=== PATIENT | male | born 1985 | race Hispanic/Latino ===

== ENCOUNTER 2018-04-25 17:22 | Inpatient (IN) | payer BC ==
[2018-04-25] MEDS ORDERED: Ibuprofen 800 MG TAB ONE (17:58)
[2018-04-25 18:47] LABS: ALT (SGPT) 136 U/L (8-55); AST (SGOT) 78 U/L (5-34); Albumin 5.1 g/dL (3.5-5.0); Alkaline Phosphatase 151 U/L (40-150); Anion Gap 17 mmol/L (10-20); BUN (Urea Nitrogen) 9 mg/dL (8.9-20.6); Band 6 % (5-11); Calc. Creatinine Clearance 0 mL/min (70-130); Calcium 10.5 mg/dL (7.8-10.44); Carbon Dioxide 24 mmol/L (22-29); Chloride 99 mmol/L (98-107); Estimated GFR-MDRD Greater than 90; Globulin 3.8 g/dL (2.4-3.5); Glucose 99 mg/dL (70-105); Lymphocytes 4 % (21-51); MDiff Complete? YES; Mean Corpuscular Hemoglobin 30.2 pg (27.0-31.0); Mean Corpuscular Volume 91.4 fL (78.0-98.0); Mean Platelet Volume 8.3 fL (7.4-10.4); Monocytes 4 % (0-10); Neutrophil 82 % (42-75); Platelet Count 283 thou/uL (130-400); Platelet Morphology Comment Appears Adequate; Protein, Total 8.9 g/dL (6.0-8.3); RBC Distribution Width 11.2 % (11.5-14.5); RBC Morphology Normal; Reactive Lymphocytes 4 % (0-10); Sodium 136 mmol/L (136-145); White Blood Cell (WBC) Count 15.3 thou/uL (4.8-10.8)
[2018-04-25] MEDS ORDERED: Piperacillin/Tazobactam 4.5 GM VIAL ONE (18:54)
[2018-04-25] MEDS ORDERED: Sodium Chloride 0.9% 100 ML ONE (18:54)
[2018-04-25] MEDS ORDERED: Vancomycin HCl 1.5 GM in Sodium Chloride 0.9% 250 ML 300 ML IVPB SCH (19:15)
--- NOTE | 2018-04-25 19:38 | PDOC.FPRHP ---
- History of Present Illness Chief Complaint: Leg swelling History of Present Illness: Mr Terry is a 32yo male presenting for left upper leg swelling and redness that started 04/21/18. Was seen at urgent care today and given shot of rocephin and sent home with Bactrim and instructed to return the next day for another injection. After he left the clinic he began having chills and felt his face get red so this prompted ED visit. Fever and chills since 04/22/18. Last tetanus shot unknown. ED Course: 2L NS, Vanc and Zosyn - Allergies/Adverse Reactions Allergies Allergy/AdvReac Type Severity Reaction Status Date / Time No Known Allergies Allergy Unverified 04/25/18 19:01 - History PMHx: None PSHx: None FHx: Mother- HTN Social: Social alcohol use. Last use - 6 pk. Denies tobacco or drug use - Review of Systems General: reports: fever/chills. denies: weight/appetite/sleep changes Eyes: denies: eye pain, vision changes ENT: denies: nasal congestion, rhinorrhea Respiratory: denies: cough, congestion Cardiovascular: reports: edema (around lesion). denies: chest pain Gastrointestinal: denies: GI bleeding Genitourinary: denies: dysuria, polyuria Skin: reports: lesions. denies: rashes Musculoskeletal: reports: pain, swelling Neurological: reports: other (no headaches). denies: seizure - Vital signs BP: 117/74 HR: 113 RR: 21 Tmax: 101.7 Pox: 96% on RA Wt: 93kg - Physical Exam Constitutional: NAD, awake, alert and oriented, well developed HEENT: normocephalic and atraumatic, conjunctiva clear, no scleral icterus, grossly normal hearing, oropharynx clear Neck: supple, trachea midline Heart: RRR, no murmurs/rubs/gallops Lungs: CTAB, no wheezing Abdomen: soft, non-tender, bowel sounds present Skin: capillary refill <2 seconds, other (left anterior upper thigh swelling with central punctuation and redness extending to back of leg and midway down calf. Ezio area of demarcation. Drained purulent fluid with removal of eschar) Psychiatric: normal mood and affect, good judgment and insight, intact recent and remote memory FMR H&P: Results - Labs Result Diagrams: 04/25/18 18:07 04/25/18 18:07 Lab results: WBC 15.3 thou/uL (4.8-10.8) H 04/25/18 18:07 Hgb 16.0 g/dL (14.0-18.0) 04/25/18 18:07 Hct 48.4 % (42.0-52.0) 04/25/18 18:07 MCV 91.4 fL (78.0-98.0) 04/25/18 18:07 Plt Count 283 thou/uL (130-400) 04/25/18 18:07 Band Neuts % (Manual) 6 % (5-11) 04/25/18 18:07 Sodium 136 mmol/L (136-145) 04/25/18 18:07 Potassium 4.0 mmol/L (3.5-5.1) 04/25/18 18:07 Chloride 99 mmol/L (98-107) 04/25/18 18:07 Carbon Dioxide 24 mmol/L (22-29) 04/25/18 18:07 BUN 9 mg/dL (8.9-20.6) 04/25/18 18:07 Creatinine 0.95 mg/dL (0.7-1.3) 04/25/18 18:07 Glucose 99 mg/dL (70-105) 04/25/18 18:07 Lactic Acid 1.8 mmol/L (0.5-2.2) 04/25/18 18:07 Calcium 10.5 mg/dL (7.8-10.44) H 04/25/18 18:07 Total Bilirubin 1.0 mg/dL (0.2-1.2) 04/25/18 18:07 AST 78 U/L (5-34) H 04/25/18 18:07 ALT 136 U/L (8-55) H 04/25/18 18:07 Alkaline Phosphatase 151 U/L (40-150) H 04/25/18 18:07 Serum Total Protein 8.9 g/dL (6.0-8.3) H 04/25/18 18:07 Albumin 5.1 g/dL (3.5-5.0) H 04/25/18 18:07 FMR H&P: A/P - Problem List (1) Sepsis Current Visit: Yes Status: Acute Code(s): A41.9 - SEPSIS, UNSPECIFIED ORGANISM (2) Cellulitis Current Visit: Yes Status: Acute Code(s): L03.90 - CELLULITIS, UNSPECIFIED - Plan Sepsis 2/2 left upper leg Cellulitis - Leukocytosis, febrile, tachycardic - S/p 2L in ED - Started on LR @ 140 - Ordered Left femur Xray - Warm compresses to encourage drainage and keep leg elevated - Consider ultrasound to eval for drainage tomorrow - Admit to medical Transaminitis - Reports drinking 6pk 2 times per week, AST/ALT ratio doesn't suggest alcohol as sole cause of elevation - Ordered Hepatitis studies, RPR, HIV and RUQ ultrasound - Continue to monitor with AM CMP Alcohol abuse - No hx of withdrawal, drinks 2-3 times per week. Last drink on 04/21- 6pk of beer - Encourage cessation - Educated pt and on transaminitis Code Status: FULL DVT ppx: Lovenox FMR H&P: Upper Level - Pertinent history 32 yo M with no significant PMHx who presents with 5 days of progressively worsening LLE redness and edema. He thought he had a spider bite on his L thigh and it has been draining a little bit of fluid for a couple of days. Today he went to urgent care, was given abx but returned home and got progressively more chilled and continued to have fever so he came to ED. Denies any other systemic symptoms. - Pertinent findings VS reviewed, febrile and tachycardic Labs reviewed: leukocytosis, transaminitis Gen: awake, alert, oriented, sleepy but easily arousable HEENT: NCAT, slightly dry MM CV: tachycardic, no murmur noted RESP: CTAB ABD: soft, nontender, nondistended EXT: LLL with small lesion, draining purulent fluid, bandage in place, erythema marked off and extends from lateral thigh to calf, no fluctuance, minimally TTP , slightly warm, pulses 2+ throughout NEURO: moving extremities equally, no facial droop - Plan Date/Time: 04/25/181937 32 yo M with PMHx obesity and alcohol use here with sepsis 2/2 JONATHAN cellulitis 1. Sepsis 2/2 left upper leg cellulitis: Leukocytosis, febrile, tachycardic. Continue fluids, s/p 2L bolus. Xray pending. Sono for possible further drainage , some fluid expressed in ED and sent for culture. Blood cultures pending. 2. Transaminitis: No abdominal pain. Likely 2/2 alcohol use/abuse and possible fatty liver. RUQ sono to evaluate. HIV, RPR, Hepatitis studies ordered. Monitor. 3. Alcohol use/abuse: Encouraged cessation and discussed LFTs and likely sono findings. Denies any history of DTs or withdrawals. Last use . Code Status: Full DVT ppx: Nellyx I, Gloria Peters MD, PGY-3, have evaluated this patient and agree with findings/ plan as outlined by general intern resident. Pertinent changes/additions are listed here. Addendum - Attending - Attending Attestation Date/Time: 04/26/18 0002 I personally evaluated the patient and discussed the management with Dr. Nieves I agree with the History, Examination, Assessment and Plan documented above with any addition or exceptions noted below. Sepsis secondary to LLE cellulitis puncture wound noted left lateral midthigh strep/staph coverage and tetanus prophylaxis, US for abscess LLE .
[2018-04-25 20:01] LABS: Bilirubin Negative (Negative); Blood, Urine Negative (Negative); Clarity CLEAR (Clear); Glucose, Urine (Dipstick) Negative (Negative); Leukocyte Negative (Negative); Nitrite Negative (Negative); Protein, Urine (Dipstick) Negative (Neg-Trace); Specific Gravity, Urine 1.014 (1.002-1.036)
[2018-04-25] MEDS ORDERED: Adacel (T-DAP) 0.5 ML SYRINGE ONE (20:56)
--- NOTE | 2018-04-25 22:13 | RAD ---
LEFT FEMUR TWO VIEWS: HISTORY: Evaluate for osteomyelitis. COMPARISON: None. FINDINGS: There is possible soft tissue swelling. There appears to be possible subcutaneous air along the late ral aspect of the proximal left lower extremity. No evidence of fracture, cortical irregularity, per iosteal reaction, or cortical erosion to suggest osteomyelitis. IMPRESSION: 1. No radiographic evidence of osteomyelitis. 2. Soft tissue swelling with possible subcutaneous air along the proximal lateral aspect of the left lower extremity. The possibility of cellulitis cannot be excluded. POS: [facility]
[2018-04-25 22:24] LABS: Prothrombin Time 13.3 SEC (12.0-14.7)
--- NOTE | 2018-04-25 23:23 | ULT ---
RIGHT UPPER QUADRANT ULTRASOUND: INDICATIONS: Transaminitis. COMPARISON: No prior imaging comparison. FINDINGS: There is increased echogenicity of the liver. No acute gallbladder pathology or ascites. The common duct is normal, measuring 3 mm in diameter. IMPRESSION: 1. No acute gallbladder pathology. 2. Increase echogenicity of the liver, which suggests fatty infiltration. POS: [facility]
[2018-04-25] MEDS: Piperacillin/Tazobactam 3.375 GM in Sodium Chloride 0.9% 100 ML IVPB SCH (23:35)
[2018-04-25] MEDS: Lactated Ringer's 1,000 ML IV SCH (23:39)
[2018-04-26 00:15] LABS: Syphilis Antibody Nonreactive (Nonreactive); Syphilis Antibody Index 0.04 S/CO (<1.00 Non-Reactive)
[2018-04-26] MEDS ORDERED: Acetaminophen 325 MG TAB ONE (01:18)
[2018-04-26 04:11] LABS: #Eosinphils 0.1 thou/uL (0.0-0.7); #Lymphocytes 1.8 thou/uL (1.20-3.40); #Monocytes 1.1 thou/uL (0.11-0.59); #Neutrophils 11.5 thou/uL (1.40-6.50); %Basophils 0.3 % (0.0-1.0); %Eosinophils 0.4 % (0.0-10.0); %Lymphocytes 12.4 % (21.0-51.0); %Monocytes 7.5 % (0.0-10.0); %Neutrophils 79.4 % (42.0-75.0); Hemoglobin 14.9 g/dL (14.0-18.0); Mean Corpuscular HGB CONC 33.4 g/dL (32.0-36.0); Mean Corpuscular Volume 92.8 fL (78.0-98.0); Mean Platelet Volume 7.9 fL (7.4-10.4); Platelet Count 240 thou/uL (130-400); RBC Distribution Width 11.2 % (11.5-14.5); Red Blood Cell (RBC) Count 4.79 mill/uL (4.70-6.10); White Blood Cell (WBC) Count 14.5 thou/uL (4.8-10.8)
[2018-04-26 04:30] LABS: ALT (SGPT) 110 U/L (8-55); AST (SGOT) 62 U/L (5-34); Albumin 4.1 g/dL (3.5-5.0); Alkaline Phosphatase 128 U/L (40-150); Anion Gap 16 mmol/L (10-20); BUN (Urea Nitrogen) 9 mg/dL (8.9-20.6); Bilirubin, Total 1.5 mg/dL (0.2-1.2); Calc. Creatinine Clearance 0 mL/min (70-130); Calcium 9.2 mg/dL (7.8-10.44); Carbon Dioxide 18 mmol/L (22-29); Chloride 106 mmol/L (98-107); Estimated GFR-MDRD Greater than 90; Glucose 108 mg/dL (70-105); Potassium 3.9 mmol/L (3.5-5.1); Protein, Total 7.1 g/dL (6.0-8.3); Sodium 136 mmol/L (136-145)
[2018-04-26] MEDS: Piperacillin/Tazobactam 3.375 GM in Sodium Chloride 0.9% 100 ML IVPB SCH ×4 (06:01→23:41)
--- NOTE | 2018-04-26 07:03 | PDOC.FM ---
- Subjective Subjective: Patient reports 7-8/10 pain in his leg. Says his pain is worse with movement. Says he feels hot but denies any chills, N/V or abdominal pain. - Objective MAR Reviewed: Yes Result Diagrams: 04/26/18 04:02 04/26/18 04:02 Radiology Reviewed by me: Yes Radiology: Left leg x-ray - soft tissue swelling w/ possible SQ air but no signs of osteo RUQ U/S- fatty liver Phys Exam - Physical Examination Constitutional: NAD HEENT: moist MMs, sclera anicteric Neck: supple, full ROM Respiratory: no wheezing, no rales, no rhonchi, clear to auscultation bilateral Cardiovascular: RRR, no significant murmur Gastrointestinal: soft, non-tender, no distention, positive bowel sounds Musculoskeletal: pulses present, edema present mild edema in lateral distal left thigh w/ surrounding erythema & warmth Neurological: non-focal, normal sensation, moves all 4 limbs Psychiatric: normal affect, A&O x 3 Skin: no rash, normal turgor, cap refill <2 seconds Deviation from normal: ~10x8 cm area of fluctuance & induration w/ wamrth & erythema overlying -: lateral distal left thigh Dx/Plan (1) Sepsis Code(s): A41.9 - SEPSIS, UNSPECIFIED ORGANISM Status: Acute (2) Cellulitis Code(s): L03.90 - CELLULITIS, UNSPECIFIED Status: Acute Qualifiers: Site of cellulitis of extremity: lower extremity Laterality: left (3) Alcohol abuse Code(s): F10.10 - ALCOHOL ABUSE, UNCOMPLICATED Status: Acute - Plan Plan: 32YOM w/ no significant PMH who presented to the ED with a CC of left upper leg swelling since 04/21 with associated fever and chills who was found to be septic 2/2 LLE cellulitis. Sepsis 2/2 left upper leg Cellulitis - Leukocytosis, febrile & tachycardic on presentation. - S/p 2L in ED. Will continue IVFs w/ LR @ 140ml/hr. - Warm compresses to encourage drainage and keep leg elevated. - Left leg x-ray negative for bony involvement. Will obtain an ultrasound of leg to eval for possible abscess requiring an I&D. - Will continue IV vancomycin & zosyn. Leg cultures showing moderate gram + cocci in pairs & clusters. - Blood Cxs and procal pending. - Will continue ibuprofen PRN for fever & pain. Transaminitis - Slightly improved s/p fluid resuscitation. - Reports drinking 6pk 2 times per week, AST/ALT ratio doesn't suggest alcohol as sole cause of elevation. - Hepatitis studies & HIV pending. RPR negative and RUQ ultrasound showed fatty liver. - Will continue to monitor with AM CMP. Alcohol abuse - No hx of withdrawal, drinks 2-3 times per week. Last drink on 04/21- 6pk of beer. - Encourage cessation. - Educated pt and on transaminitis. Code Status: FULL DVT ppx: Lovenox Abx: Vanc & Zosyn IVFs: LR @ 140mL/hr Addendum - Attending - Attending Attestation Date/Time: 04/26/18 [id number] I personally evaluated the patient and discussed the management with Dr. Chavira I agree with the History, Examination, Assessment and Plan documented above with any addition or exceptions noted below - Patient c/o pain in left thigh. Afebrile VSS. A/P: 1) Left thigh cellulitis- continue vanc and zosyn. Ultrasound to evaluate for abscess/fluid collection. Change pain medications. Consult surgery if absecess/fluid collection seen.
[2018-04-26] MEDS ORDERED: Morphine 4 MG/ML VIAL SLOW IVP PRN (10:08)
--- NOTE | 2018-04-26 10:13 | ULT ---
ULTRASOUND SOFT TISSUES LEFT LOWER EXTREMITY: Date: 04/26/18 HISTORY: Patient with painful erythematous area distal left lower thigh, which patient noticed on of last week. Patient states he squeezed this area and noticed blood and pus. FINDINGS: Limited sonographic evaluation of the patient's area of erythema and pain was performed with imaging also obtained at the site of patient's wound and inferior to this region. There is evidence of subcut aneous edema seen in the lateral and distal thigh, with a slightly larger heterogeneous area measurin g approximately 2.6 cm x 2.1 cm x 4.6 cm. I am unsure if this is related to area of subcutaneous kayla a or whether this actually represents a heterogeneous collection. This is difficult to definitely def ine on this exam. IMPRESSION: Subcutaneous edema distal lateral left thigh in region of patient's erythema. There is a heterogeneou s area with edema also present within the distal and lateral left thigh, with greatest dimension of 4 .0 cm. I am unsure if this is related to a prominent area of subcutaneous edema or whether this actua lly represents a heterogeneous collection; this is difficult to further delineate or define on sonogr aphic evaluation. Findings could be related to infectious process in correct clinical scenario. POS: [facility]
[2018-04-26 10:41] VITALS: BMI 35.9
[2018-04-26] MEDS: Lactated Ringer's 1,000 ML IV SCH ×3 (10:58→20:09)
[2018-04-26] MEDS ORDERED: Morphine 4 MG/ML VIAL ONE (11:05)
[2018-04-26] MEDS ORDERED: Enoxaparin Sodium 40 MG/0.4 ML SYRINGE ONE (11:57)
[2018-04-26] MEDS: Vancomycin HCl 1.5 GM in Sodium Chloride 0.9% 250 ML 300 ML IVPB SCH ×2 (12:09→21:10)
[2018-04-26] MEDS: Enoxaparin Sodium 40 MG/0.4 ML SYRINGE SC SCH (12:12)
[2018-04-26] MEDS ORDERED: Midazolam HCl 2 mg/2 ml Vial ONE (13:05)
[2018-04-26] MEDS ORDERED: Lidocaine 2% 10 ML INJ ONE (13:05)
[2018-04-26] MEDS ORDERED: Fentanyl 100 MCG/2 ML VIAL ONE (13:07)
[2018-04-26 13:57] LABS: HBSAB Concentration 0.37 mIU/mL; Hep A IgM AB Non-Reactive (NonReactive); Hep A IgM S/CO 0.17 S/CO (0-0.79); Hep B Surf AB Non-Reactive (NonReactive); Hep B Surf Ag Non-Reactive S/CO (NonReactive); Hep C IgG Ab Non-Reactive (NonReactive)
[2018-04-26] MEDS: Clindamycin/D5W 600 MG in Premix Bag 1 BAG IVPB SCH ×3 (15:12→23:36)
[2018-04-26 15:19] LABS: HIV (1/2) Antibody/Antigen Non-Reactive (NonReactive); HIV 1/2 INDEX 0.08 S/CO (<1.00)
--- NOTE | 2018-04-26 15:33 | OP ---
DATE OF PROCEDURE: 04/26/2018 PREOPERATIVE DIAGNOSES: Left thigh abscess. POSTOPERATIVE DIAGNOSIS: Left thigh abscess. PROCEDURE PERFORMED: Incision and drainage of left thigh abscess. ANESTHESIA: Conscious sedation provided by Anesthesia Department. INDICATIONS FOR PROCEDURE: A 32-year-old man presented with a 3 to 4-day history of painful left thigh and swelling. Clinical examination revealed left thigh abscess, likely secondary to insect bite. Decision was made to perform incision and drainage. DESCRIPTION OF PROCEDURE: Informed consent was obtained from the patient, he was placed in supine position. Conscious sedation was provided by Anesthesia Department. The left thigh was sterilely prepped and draped in usual fashion. This skin around the abscess was widely infiltrated with 2% lidocaine with epinephrine. Cruciate incision was made over the dome of the abscess using 11 scalpel. Purulent drainage was evacuated from the abscess after cultures were taken. The abscess cavity was irrigated with saline and packed with half-inch iodoform gauze. Sterile dressings was applied. The patient tolerated the procedure without any apparent complication and remained hemodynamically stable following completion of the procedure. Job ID: [id number]
--- NOTE | 2018-04-26 16:12 | CON ---
DATE OF CONSULTATION: 04/26/2018 HISTORY OF PRESENT ILLNESS: This is a 32-year-old man, who presented to the Emergency Department with painful and swollen left thigh. The patient reports progressive swelling and pain to his left thigh since the last 3 days. He admits to some chills, but no fevers. There has not been any drainage from the thigh up until earlier today. The patient denies any trauma or insect bite to the left thigh. PAST MEDICAL HISTORY: The patient denies any significant medical history except for obesity. PAST SURGICAL HISTORY: He denies any previous surgeries. SOCIAL HISTORY: He is , lives at home with his and baby. He admits to occasional intake of ethanol in moderate amount. He denies any cigarette smoking or illicit drug abuse. FAMILY HISTORY: Denies any family history of diabetes mellitus, hypertension, or heart disease. CURRENT MEDICATIONS: None. ALLERGIES: THE PATIENT DENIES ANY KNOWN DRUG ALLERGIES. REVIEW OF SYSTEMS: Ten-point review of systems essentially unremarkable except as stated in past medical history and chief complaint. PHYSICAL EXAMINATION: GENERAL: Reveals a 32-year-old normally developed man, who is otherwise coherent, interactive, appears stated age. The patient is alert and oriented x3, appears to be in no acute distress at time of my evaluation. HEART: Reveals regular rate with sinus tachycardia. No murmurs or gallops auscultated. LUNGS: Clear to auscultation bilaterally. Breathing, regular and nonlabored. ABDOMEN: Soft, nontender, nondistended. EXTREMITIES: Reveals 2+ radial and pedal pulses bilaterally. No ankle edema is present. The patient has a swollen left distal anterior thigh. There is a punctate area, which drains some purulent fluid. There is a palpable flocculence in the center of the swelling. Surrounding erythema is noted. NEUROLOGIC: Reveals no focal deficits present. LABORATORY DATA: Pertinent laboratory findings today includes a CBC with 14,500 white blood cells and hemoglobin and hematocrit 14.9 and 44.4 respectively. Platelet count is 240,000. Metabolic profile; sodium is 136, potassium is 3.9, chloride is 106, bicarb is 18, BUN is 9, creatinine is 0.85, and glucose is 108. AST and ALT noted at 62 and 110 respectively. Total bilirubin is 1.5. I have personally reviewed the ultrasound of the left lower extremity, which reveals a heterogeneous fluid collection in the left distal thigh. IMPRESSION: Left thigh abscess secondary to likely insect bite. PLAN: Incision and drainage of the abscess, which measures approximately 2 x 1 cm. Continue antibiotics as ordered and prescribed by primary service. Job ID: [id number]
[2018-04-26] MEDS: Acetaminophen 325 MG TAB PO PRN (16:38)
[2018-04-26] MEDS: Ibuprofen 800 MG TAB PO PRN (23:36)
[2018-04-27] MEDS: Lactated Ringer's 1,000 ML IV SCH ×2 (01:49→08:34)
[2018-04-27] MEDS: Clindamycin/D5W 600 MG in Premix Bag 1 BAG IVPB SCH ×4 (05:06→23:08)
[2018-04-27] MEDS: Piperacillin/Tazobactam 3.375 GM in Sodium Chloride 0.9% 100 ML IVPB SCH (05:10)
--- NOTE | 2018-04-27 06:39 | PDOC.FM ---
- Subjective Subjective: NAEO. Patient reports that his pain is much improved after the I&D. Denies any fever/chills, nausea/vomiting, diarrhea, SOB, or chest pain. - Objective MAR Reviewed: Yes Vital Signs & Weight: Vital Signs (12 hours) Temp Pulse Resp BP Pulse Ox 04/27/18 05:06 98 F 78 16 108/72 98 04/27/18 00:55 99.7 F H 104 H 18 97/60 96 04/26/18 20:22 99.5 F 106 H 16 103/66 95 04/26/18 20:00 95 Weight Weight 94.801 kg I&O: 04/25/18 04/26/18 04/27/18 06:59 06:59 06:59 Intake Total 2800 Output Total 2750 Balance 50 Result Diagrams: 04/28/18 07:44 04/28/18 07:44 Phys Exam - Physical Examination Constitutional: NAD HEENT: moist MMs, sclera anicteric Neck: supple, full ROM Respiratory: no wheezing, no rales, no rhonchi, clear to auscultation bilateral Cardiovascular: RRR, no significant murmur Gastrointestinal: non-tender, positive bowel sounds Musculoskeletal: pulses present, edema present (in lateral distal left thigh) Neurological: non-focal, normal sensation, moves all 4 limbs Psychiatric: normal affect, A&O x 3 Skin: no rash, normal turgor, cap refill <2 seconds Deviation from normal: improved erythema and edema in lateral distal L thigh -: wound wrapped in dry, clean, & intact CHARLEY bandage Dx/Plan (1) Sepsis Code(s): A41.9 - SEPSIS, UNSPECIFIED ORGANISM Status: Resolved (2) Cellulitis Code(s): L03.90 - CELLULITIS, UNSPECIFIED Status: Acute Qualifiers: Site of cellulitis of extremity: lower extremity Laterality: left Qualified Code(s): L03.116 - Cellulitis of left lower limb (3) Alcohol abuse Code(s): F10.10 - ALCOHOL ABUSE, UNCOMPLICATED Status: Acute (4) Transaminitis Code(s): R74.0 - NONSPEC ELEV OF LEVELS OF TRANSAMNS & LACTIC ACID DEHYDRGNSE Status: Acute - Plan Plan: 32YOM w/ no significant PMH who presented to the ED with a CC of left upper leg swelling since 04/21 with associated fever and chills who was found to be septic 2/2 LLE cellulitis. Left leg cellulitis complicated by abscess formation: - patient is day #1 s/p I&D of left thigh abscess - Thigh Cxs + for MRSA sensitive to clinda and vancomycin - Will tailor abx regimen per culture results and continue IV abx for at least another day or 2 given before considering switching to a PO regimen. - Will continue PRN ibuprofen and tylenol for pain control. Will consider PO tramadol rather than IV morphine since abscess has now been drained & patient has not required morphine since 11:00 yesterday. - Will wean IVFs as tolerated by patient since he is not afebrile with a normal HR & is tolerating PO. - WC consulted to educate family on wound care. Sepsis 2/2 left upper leg Cellulitis, ruled out: - Leukocytosis, febrile & tachycardic on presentation so therefore met SIRS criteria with a source being left leg cellulitis. However, procal only 0.07 & blood cultures NTD. Transaminitis - Slightly improved s/p fluid resuscitation. - Reports drinking 6pk 2 times per week, AST/ALT ratio doesn't suggest alcohol as sole cause of elevation. - Hepatitis studies & HIV pending. RPR negative and RUQ ultrasound showed fatty liver. - Will continue to monitor with AM CMP. Alcohol abuse - No hx of withdrawal, drinks 2-3 times per week. Last drink on 04/21- 6pk of beer. - Encourage cessation. - Educated pt on transaminitis. Code Status: FULL DVT ppx: Lovenox Abx: Vanc & clinda IVFs: LR @ 140mL/hr Addendum - Attending - Attending Attestation Date/Time: 04/28/18 [id number] I personally evaluated the patient and discussed the management with Dr. Chavira on 04/27/2018 I agree with the History, Examination, Assessment and Plan documented above with any addition or exceptions noted below - Patient without complaints. Reports pain much better. Able to ambulate. Afebrile VSS. A/P: 1) Cellulitis with abscess s/p I&D- erythema much improved; pain improved. Continue current meds. Cultures pending.
[2018-04-27] MEDS: Enoxaparin Sodium 40 MG/0.4 ML SYRINGE SC SCH (08:33)
[2018-04-27] MEDS: Vancomycin HCl 1.5 GM in Sodium Chloride 0.9% 250 ML 300 ML IVPB SCH ×2 (09:02→21:04)
[2018-04-27 09:49] LABS: #Eosinphils 0.3 thou/uL (0.0-0.7); #Lymphocytes 1.8 thou/uL (1.20-3.40); #Monocytes 0.9 thou/uL (0.11-0.59); #Neutrophils 9.7 thou/uL (1.40-6.50); %Basophils 0.3 % (0.0-1.0); %Eosinophils 2.2 % (0.0-10.0); %Lymphocytes 14.3 % (21.0-51.0); %Monocytes 6.8 % (0.0-10.0); %Neutrophils 76.4 % (42.0-75.0); Hemoglobin 13.6 g/dL (14.0-18.0); Mean Corpuscular HGB CONC 32.8 g/dL (32.0-36.0); Mean Corpuscular Hemoglobin 30.4 pg (27.0-31.0); Mean Corpuscular Volume 92.5 fL (78.0-98.0); Mean Platelet Volume 8.1 fL (7.4-10.4); Platelet Count 254 thou/uL (130-400); Red Blood Cell (RBC) Count 4.47 mill/uL (4.70-6.10); White Blood Cell (WBC) Count 12.6 thou/uL (4.8-10.8)
[2018-04-27 10:09] LABS: ALT (SGPT) 99 U/L (8-55); AST (SGOT) 40 U/L (5-34); Albumin 3.7 g/dL (3.5-5.0); Alkaline Phosphatase 144 U/L (40-150); Anion Gap 15 mmol/L (10-20); BUN (Urea Nitrogen) 8 mg/dL (8.9-20.6); Bilirubin, Total 1.5 mg/dL (0.2-1.2); Calc. Creatinine Clearance 188 mL/min (70-130); Carbon Dioxide 22 mmol/L (22-29); Chloride 104 mmol/L (98-107); Estimated GFR-MDRD Greater than 90; Globulin 3.1 g/dL (2.4-3.5); Glucose 109 mg/dL (70-105); Potassium 3.8 mmol/L (3.5-5.1); Protein, Total 6.8 g/dL (6.0-8.3); Sodium 137 mmol/L (136-145)
[2018-04-27] MEDS: Acetaminophen 325 MG TAB PO PRN ×2 (10:29→23:08)
[2018-04-27] MEDS: traMADol HCl 50 MG TAB PO PRN ×2 (11:43→23:09)
--- NOTE | 2018-04-27 13:51 | PRG ---
DATE OF SERVICE: 04/20/2018 SUBJECTIVE: The patient was seen and evaluated today by Dr. Moon and myself status post I and D of left thigh abscess and cellulitis. This morning, the patient reports the packing was changed once overnight and he has a decrease in the erythema of his left lower leg. He is currently receiving clindamycin and vancomycin. Does not have any fevers today. Tachycardia is resolving. He is hemodynamically stable at this time. The packing was removed and the wound was evaluated by Dr. Moon and repacked and dressed. PHYSICAL EXAMINATION: The patient has an area of erythema over his left anterior thigh and a small portion of his anterior left tib-fib. There is a wound at the location of the I and D of the left mid anterior thigh, which does not appear to be draining purulent discharge at this time. Wound dressing appeared clean and dry when evaluated. ASSESSMENT: 1. Left thigh abscess secondary to insect bite. 2. Left lower extremity cellulitis. RECOMMENDATIONS: Continue dressing changes with packing b.i.d. Antibiotic regimen per primary team. Continue to apply hot compresses to the left lower extremity BID. No indication for further I and D or operative intervention. Surgery will sign off at this time. Please call with any further questions. Patient was see and examined by Dr. Koo and myself this morning during rounds. Job ID: [id number] [facility]
[2018-04-27] MEDS: Ibuprofen 800 MG TAB PO PRN (16:08)
[2018-04-27 20:36] LABS: Vancomycin, Trough 5.7 ug/mL
[2018-04-27] MEDS ORDERED: Vancomycin HCl 2.25 GM in Sodium Chloride 0.9% 500 ML IVPB SCH ×2 (21:30→21:45)
[2018-04-28] MEDS: Ibuprofen 800 MG TAB PO PRN ×2 (03:41→11:46)
[2018-04-28] MEDS: Clindamycin/D5W 600 MG in Premix Bag 1 BAG IVPB SCH (04:55)
[2018-04-28] MEDS ORDERED: Vancomycin HCl 1.5 GM in Sodium Chloride 0.9% 500 ML IVPB SCH (05:00)
--- NOTE | 2018-04-28 06:45 | PDOC.FM ---
- Subjective Subjective: NAEO. Patient has been afebrile for ~48 hours now. Says pain is well controlled on current pain regimen. Denies any fever/chills, N/V, or diarrhea. - Objective MAR Reviewed: Yes Vital Signs & Weight: Vital Signs (12 hours) Temp Pulse Resp BP Pulse Ox 04/27/18 20:19 98.4 F 94 18 97/61 97 Weight Admit Weight 94.801 kg Weight 94.801 kg I&O: 04/26/18 04/27/18 04/28/18 06:59 06:59 06:59 Intake Total 2800 2220 Output Total 2750 600 Balance 50 1620 Result Diagrams: 04/28/18 07:44 04/28/18 07:44 Phys Exam - Physical Examination Constitutional: NAD HEENT: moist MMs, sclera anicteric Neck: supple, full ROM Respiratory: no wheezing, no rales, no rhonchi, clear to auscultation bilateral Cardiovascular: RRR, no significant murmur Gastrointestinal: soft, no distention, positive bowel sounds Musculoskeletal: pulses present, edema present edema in lateral left leg and into left foot but non-TTP Neurological: non-focal, moves all 4 limbs Psychiatric: normal affect, A&O x 3 Skin: no rash, normal turgor, cap refill <2 seconds Deviation from normal: erythema spreading into foot w/ small amount of bloody, purulent d/c -: noted on gauze covering I&D incision site Dx/Plan (1) Sepsis Code(s): A41.9 - SEPSIS, UNSPECIFIED ORGANISM Status: Resolved (2) Cellulitis Code(s): L03.90 - CELLULITIS, UNSPECIFIED Status: Acute Qualifiers: Site of cellulitis of extremity: lower extremity Laterality: left (3) Alcohol abuse Code(s): F10.10 - ALCOHOL ABUSE, UNCOMPLICATED Status: Acute (4) Transaminitis Code(s): R74.0 - NONSPEC ELEV OF LEVELS OF TRANSAMNS & LACTIC ACID DEHYDRGNSE Status: Acute - Plan Plan: 32YOM w/ no significant PMH who presented to the ED with a CC of left upper leg swelling since 04/21 with associated fever and chills who was found to be septic 2/2 LLE cellulitis. Left leg cellulitis complicated by abscess formation: - patient is day #2 s/p I&D of left thigh abscess - WBC WNLs this AM at 9.8. - Thigh Cxs + for MRSA sensitive to clinda and vancomycin. Abscess drainage Cx positive for strep pyogenes, sensitivities pending. - Will consider switching to PO clindamycin today in anticipation of possible d/ c home later today if patient remains HD stable & pain continues to be well controlled. However, may need another day in hospital as erythema and swelling in left foot slightly appears worse. - Will continue PRN tramadol, ibuprofen, and tylenol for pain control. - Will instruct WC/nursing to educate family on wound care. Per gen surg patient needs to continue packing the wound BID. Sepsis 2/2 left upper leg Cellulitis, ruled out: - Leukocytosis, febrile & tachycardic on presentation so therefore met SIRS criteria with a source being left leg cellulitis. However, procal only 0.07 & blood cultures NTD. Transaminitis - Improving. - Reports drinking 6pk 2 times per week, AST/ALT ratio doesn't suggest alcohol as sole cause of elevation. - Hepatitis studies significant for hep B non-immune. HIV & RPR negative and RUQ ultrasound showed only fatty liver. - Will continue to monitor with AM CMPs. Alcohol abuse - No hx of withdrawal, drinks 2-3 times per week. Last drink on 04/21- 6pk of beer. - Encourage cessation. - Educated pt on transaminitis. Code Status: FULL DVT ppx: Lovenox Abx: PO clinda IVFs: Addendum - Attending - Attending Attestation Date/Time: 04/28/18 [id number] I personally evaluated the patient and discussed the management with Dr. Chavira I agree with the History, Examination, Assessment and Plan documented above with any addition or exceptions noted below - Patient without complaints. Pain much better able to ambulate. Afebrile VSS. A/P: 1) Cellulitis with abscess- s/ p I&D- wound culture with strep pyogenes and MRSA- changed to po abx. Will teach with wound care and then d/c home. F/U as outpatient in clinic.
[2018-04-28] MEDS: Clindamycin 150 MG CAP PO SCH ×2 (07:58→12:20)
[2018-04-28] MEDS: Enoxaparin Sodium 40 MG/0.4 ML SYRINGE SC SCH (07:59)
[2018-04-28 08:30] LABS: #Eosinphils 0.4 thou/uL (0.0-0.7); #Lymphocytes 1.8 thou/uL (1.20-3.40); #Monocytes 0.7 thou/uL (0.11-0.59); #Neutrophils 6.9 thou/uL (1.40-6.50); %Basophils 0.4 % (0.0-1.0); %Eosinophils 3.6 % (0.0-10.0); %Lymphocytes 18.7 % (21.0-51.0); %Neutrophils 70.4 % (42.0-75.0); Hemoglobin 12.4 g/dL (14.0-18.0); Mean Corpuscular HGB CONC 32.5 g/dL (32.0-36.0); Mean Corpuscular Hemoglobin 30.3 pg (27.0-31.0); Mean Corpuscular Volume 93.2 fL (78.0-98.0); Platelet Count 260 thou/uL (130-400); Red Blood Cell (RBC) Count 4.09 mill/uL (4.70-6.10); White Blood Cell (WBC) Count 9.8 thou/uL (4.8-10.8)
[2018-04-28 08:56] LABS: ALT (SGPT) 86 U/L (8-55); AST (SGOT) 34 U/L (5-34); Albumin 3.6 g/dL (3.5-5.0); Alkaline Phosphatase 165 U/L (40-150); Anion Gap 12 mmol/L (10-20); BUN (Urea Nitrogen) 7 mg/dL (8.9-20.6); Calc. Creatinine Clearance 198 mL/min (70-130); Calcium 9.2 mg/dL (7.8-10.44); Carbon Dioxide 25 mmol/L (22-29); Chloride 104 mmol/L (98-107); Estimated GFR-MDRD Greater than 90; Glucose 92 mg/dL (70-105); Potassium 3.9 mmol/L (3.5-5.1); Protein, Total 6.6 g/dL (6.0-8.3); Sodium 137 mmol/L (136-145)
[2018-04-28] MEDS ORDERED: Vancomycin HCl 2.25 GM in Sodium Chloride 0.9% 500 ML IVPB SCH (09:00)
[2018-04-28 17:16] VITALS: BP 103/60; TEMP 98.4
--- NOTE | 2018-04-29 10:15 | DIS ---
DATE OF ADMISSION: 04/25/2018 DATE OF DISCHARGE: 04/28/2018 RESIDENT: Mary Chavira MD ADMITTING ATTENDING: Basim Garcia MD DISCHARGE ATTENDING: Melody Larios MD CONSULT: General Surgery, Silvestre Moon DO, on 04/26/2018. PROCEDURES: 1. Femur x-ray on 04/25/2018, which showed no radiographic evidence of osteomyelitis, but did reveal some soft tissue swelling with possible subcutaneous air along the proximal lateral aspect of the left lower extremity. The possibility of cellulitis cannot be excluded. 2. Abdominal ultrasound on 04/25/2018, which showed increased echogenicity of the liver suggestive of fatty infiltration. 3. Soft tissue ultrasound on 04/26/2017, which showed subcutaneous edema in the distal lateral left thigh region with heterogeneous area with its greatest dimension of 4.0 cm. Unsure if related to a prominent area of subcutaneous edema or whether it represents a heterogeneous collection. 4. Incision and drainage of left thigh abscess on 04/26/2018. PRIMARY DIAGNOSES: 1. Purulent cellulitis of the left lower extremity. 2. Transaminitis secondary to suspected fatty liver disease. SECONDARY DIAGNOSIS: Alcohol abuse. DISCHARGE MEDICATIONS: 1. Acetaminophen 325 mg p.o. every 6 hours p.r.n. 2. Clindamycin 300 mg p.o. every 6 hours for 4 days. 3. Ibuprofen 800 mg p.o. every 8 hours p.r.n. 4. Tramadol 50 mg p.o. every 6 hours p.r.n. #10 tablets. DISCONTINUED MEDICATIONS: None. HOSPITAL COURSE: The patient is a 32-year-old gentleman with past medical history significant only for moderate alcohol use, who presented to the emergency department with a chief complaint of left thigh pain, erythema and swelling, which began approximately 2 days prior to presentation. The patient noted that his thigh began to swell and became red and hot, and visited an urgent care facility the day prior to presentation to the ER, where he received a shot of Rocephin and was prescribed p.o. antibiotics. However, upon returning home, the patient noted that he felt feverish and had chills and therefore, he decided to present to the ER for further evaluation. On presentation to the emergency department, the patient was noted to be tachycardic with heart rate of 135 and febrile, as high as 102.9 degrees Fahrenheit and rated the pain 8/10 in severity. Routine blood work was obtained, which showed the patient had a leukocytosis of 15.3 and transaminitis with an elevated alkaline phosphatase as well with an AST of 78, ALT of 136, and alkaline phosphatase of 151. The Emergency Department therefore determined the patient to be septic, secondary to cellulitis of his left leg. The patient was given a dose of IV vancomycin and Zosyn. He was also given 2 L of normal saline, a dose of p.o. Tylenol, Motrin, and a tetanus shot. Upon evaluation by the primary team in the emergency department, it was determined that he did in fact have cellulitis and a femur x-ray was ordered to rule out bone involvement, which was negative. In addition, due to the patient's transaminitis, an abdominal ultrasound was obtained which was negative for any gallbladder pathology but did show liver changes consistent with fatty infiltration. The patient was therefore admitted to the medical floor for management of his cellulitis. Wound cultures from the left thigh were collected in the ED and the patient was continued on IV antibiotics. The following morning, a soft tissue ultrasound was obtained of the left thigh, which showed an area of largest 4 cm heterogenicity which could not be definitively defined as an abscess collection. General Surgery, Dr. Silvestre Moon was therefore consulted to come and evaluate the patient for possible I and D of his left thigh. Shortly after consultation, Dr. Moon performed an I and D. The patient's left thigh was able to drain significant amount of purulent discharge and the wound was cultured and packed postoperatively. The patient tolerated the procedure well and continued to remain hemodynamically stable and afebrile while on the medical floor. He was continued on IV antibiotics including vancomycin and clindamycin only as the initial ED cultures were positive for MRSA for one additional day. By the 4th day of hospitalization, the patient was transitioned to p.o. clindamycin only as both cultures were positive for MRSA infection. Therefore, after being instructed on proper wound care at home, the patient was cleared for discharge home on p.o. antibiotics and instructed to follow up at [facility] within 1 week of discharge. Regarding the patient's transaminitis, an extensive workup aside from the initial ultrasound was obtained including serology testing for HIV, syphilis, and hepatitis. All these tests were negative; however, the patient was noted to be nonimmune to hepatitis B and was counseled regarding this. The patient opted to receive his first vaccination at his followup visit at [facility] for hepatitis B. He was also counseled extensively on his need to decrease his alcohol use. His LFTs did downtrend over the course of his hospitalization down to an AST of 34 and ALT of 86 by the date of discharge. DISPOSITION: Stable. DISCHARGE INSTRUCTIONS: 1. Location: Home. 2. Diet: Regular diet. 3. Activity: As tolerated. 4. Followup: The patient was instructed to follow up with Dr. Marroquin at [facility] within 1 week of discharge. Job ID: [id number]
== END 2018-04-28 15:30 | disposition home or self-care (01) | DRG 581 ==
LOC: ERS 17:22 → ERHOLD 21:33 → T4-A 04-26 15:58
PROVIDERS: ADMIT Family Medicine; ATTEND Family Medicine
PROC: 0J9M0ZZ Drainage of Left Upper Leg Subcutaneous Tissue and Fascia, Open Approach (ICD-10-PCS; principal; 2018-04-26)
DX: L02.416 Cutaneous abscess of left lower limb (principal); L03.116 Cellulitis of left lower limb; S70.362A Insect bite (nonvenomous), left thigh, initial encounter; R74.0 Nonspecific elevation of levels of transaminase and lactic acid dehydrogenase [LDH]; B95.62 Methicillin resistant Staphylococcus aureus infection as the cause of diseases classified elsewhere; K76.0 Fatty (change of) liver, not elsewhere classified; F10.10 Alcohol abuse, uncomplicated; E66.9 Obesity, unspecified; Z68.35 Body mass index [BMI] 35.0-35.9, adult; W57.XXXA Bitten or stung by nonvenomous insect and other nonvenomous arthropods, initial encounter
CPT/HCPCS: 36415; 76705; 76999; 80053; 80202; 81003; 83605; 84145; 85025; 85610; 86706; 86709; 86780; 86803; 87040; 87070; 87077; 87186; 87205; 87340; 87389; 90471; 90686; 90715; 93005; 96365; 96366; 96367; G0008; J1650; J2001; J2250; J2270; J2543; J3010; J3370; J3490; J7050